=== PATIENT | female | born 1950 | race Caucasian/White ===

== ENCOUNTER 2016-06-22 08:32 | Emergency (ER) | payer BC, MEDICARE ==
[~2016-06-22] VITALS: Ht 162.6 cm; Wt 72.5 kg
[2016-06-22 08:44] VITALS: BP 208/88; PULSE 53; RESP 17; TEMP 98; O2SAT 100
[2016-06-22] MEDS ORDERED: ASPI1TAB69 PO (08:53)
[2016-06-22] MEDS ORDERED: AMBI10TA PO (08:53)
[2016-06-22] MEDS ORDERED: MULTTAB67 PO (08:53)
[2016-06-22] MEDS ORDERED: VENTAER INH (08:53)
[2016-06-22] MEDS ORDERED: ONDANSETRON ODT 4 MG TAB PO ONE (09:00)
[2016-06-22] MEDS ORDERED: MECLIZINE HCL 25 MG TAB PO ONE (09:00)
[2016-06-22] MEDS ORDERED: cloNIDine HCL 0.2 MG TAB PO ONE (09:00)
--- NOTE | 2016-06-22 09:09 | PD ---
HPI Chief Complaint: Dizziness Time Seen by Provider: 08:51 Travel History International Travel<30 days: No Contact w/Intl Traveler<30days: No Traveled to known affect area: No History of Present Illness HPI This patient is here vacationing from [place]. She called 911 because she woke up this morning feeling dizzy and lightheaded. There is a distinct room spinning sensation. Was worse when she turns her head. She doesn't have history of hypertension but her blood pressures 208 systolic on multiple readings. Did not have any type of headache. Her dizziness is still present but improved at this time. No alleviating factors. No syncope or chest pain. She's had a lot of anxiety and stress lately which she thinks may be affecting her blood pressure. Severity is moderate. Duration one day PFSH Past Medical History Arthritis: Yes Asthma: Yes Diminished Hearing: No Gastrointestinal Disorders: Yes Tetanus Vaccination: < 5 Years Influenza Vaccination: Yes ?: Not Past Surgical History Appendectomy: Yes Section: Yes Hysterectomy: Yes Oral Surgery: Yes Tympanostomy Tube: Yes Other Surgery: Yes (BARTHOLON CYSTS REMOVED) Social History Alcohol Use: Yes (~2 DRINKS A NIGHT) Tobacco Use: No Substance Use: Yes (POT SOCIAL) Allergies-Medications (Allergen,Severity, Reaction): Coded Allergies: Iodinated Contrast Media (Verified Allergy, Severe, Anaphylaxis, 06/22/16) Iodine (Verified Allergy, Severe, Anaphylaxis, 06/22/16) Reported Meds & Prescriptions Reported Meds & Active Scripts Active Reported Ventolin Hfa 18 GM Inh (Albuterol Sulfate) 90 Mcg/Act Aer 2 Puff INH Q4-6H PRN Multiple Vitamin 1 Tab 1 Tab PO DAILY Aspirin 81 Mg Tabdr 81 Mg PO DAILY Ambien (Zolpidem Tartrate) 10 Mg Tab 10 Mg PO HS PRN Review of Systems General / Constitutional: No: Fever Eyes: No: Visual changes HENT: Positive: Lightheadedness, No: Headaches Cardiovascular: No: Chest Pain or Discomfort Respiratory: No: Shortness of Breath Gastrointestinal: Positive: Nausea, No: Abdominal Pain Genitourinary: No: Dysuria Musculoskeletal: No: Pain Skin: No Rash Neurologic: Positive: Dizziness, No: Weakness Psychiatric: No: Depression Endocrine: No: Polydipsia Hematologic/Lymphatic: No: Easy Bruising Physical Exam Narrative GENERAL: Well-nourished, well-developed patient in no apparent distress. SKIN: Warm and dry. HEAD: Atraumatic. Normocephalic. EYES: Pupils equal and round. No scleral icterus. No injection or drainage. ENT: No nasal bleeding or discharge. Mucous membranes pink and moist. NECK: Trachea midline. No JVD. CARDIOVASCULAR: Regular rate and rhythm. No murmur appreciated. RESPIRATORY: No accessory muscle use. Clear to auscultation. Breath sounds equal bilaterally. GASTROINTESTINAL: Abdomen soft, non-tender, nondistended. Hepatic and splenic margins not palpable. MUSCULOSKELETAL: No obvious deformities. No clubbing. No cyanosis. No edema. NEUROLOGICAL: Awake and alert. No obvious cranial nerve deficits. Motor grossly within normal limits. Normal speech. PSYCHIATRIC: Appropriate mood and affect; insight and judgment normal. Data Data Last Documented VS Vital Signs Date Time Temp Pulse Resp B/P Pulse Ox O2 Delivery O2 Flow Rate FiO2 06/22/16 10:07 52 16 165/81 98 Room Air 06/22/16 08:44 98.0 Orders Clonidine (Catapres) (06/22/16 09:00) Meclizine (Antivert) (06/22/16 09:00) Ondansetron Odt (Zofran Odt) (06/22/16 09:00) Electrocardiogram (06/22/16 ) Plastic Welder / Telemetry MICHAEL.Q8H (06/22/16 08:56) Complete Blood Count With Diff (06/22/16 08:57) Basic Metabolic Panel (Bmp) (06/22/16 08:57) Labs Laboratory Tests Test 06/22/16 09:15 White Blood Count 5.2 TH/MM3 Red Blood Count 4.42 MIL/MM3 Hemoglobin 13.7 GM/DL Hematocrit 40.5 % Mean Corpuscular Volume 91.6 FL Mean Corpuscular Hemoglobin 31.0 PG Mean Corpuscular Hemoglobin 33.8 % Concent Red Cell Distribution Width 12.7 % Platelet Count 267 TH/MM3 Mean Platelet Volume 7.7 FL Neutrophils (%) (Auto) 75.7 % Lymphocytes (%) (Auto) 17.5 % Monocytes (%) (Auto) 4.9 % Eosinophils (%) (Auto) 1.2 % Basophils (%) (Auto) 0.7 % Neutrophils # (Auto) 3.9 TH/MM3 Lymphocytes # (Auto) 0.9 TH/MM3 Monocytes # (Auto) 0.3 TH/MM3 Eosinophils # (Auto) 0.1 TH/MM3 Basophils # (Auto) 0.0 TH/MM3 CBC Comment DIFF FINAL Differential Comment Sodium Level 140 MEQ/L Potassium Level 4.0 MEQ/L Chloride Level 104 MEQ/L Carbon Dioxide Level 27.0 MEQ/L Anion Gap 9 MEQ/L Blood Urea Nitrogen 18 MG/DL Creatinine 0.75 MG/DL Estimat Glomerular Filtration 77 ML/MIN Rate Random Glucose 141 MG/DL Calcium Level 8.5 MG/DL MDM Medical Decision Making Medical Screen Exam Complete: Yes Emergency Medical Condition: Yes Medical Record Reviewed: Yes Differential Diagnosis Hypertensive urgency, accelerated hypertension, positional vertigo Narrative Course I have reviewed the patient's electronic medical record. Patient has not been here before, she is visiting from out of town Patient is neurologically intact She has Accelerated hypertension and I gave her dose of clonidine and will reassess CBC is normal Metabolic profile is normal I reviewed her EKG which shows sinus bradycardia without ectopy Extended cardiac monitoring reveals sinus bradycardia in the 50s without ectopy I gave her dose of meclizine and Zofran Blood pressure is now 165/81 She feels improved Wrote her some Zofran to use as needed and consider trial of meclizine She will check and record her blood pressure daily and pulse The patient was advised to follow up with their physician and return if they worsen. Diagnosis Primary Impression: Positional vertigo Qualified Code: H81.10 - Positional vertigo, unspecified laterality Additional Impression: Accelerated hypertension Additional Instructions: The patient was advised to follow up with their physician and return if they worsen. Check and record blood pressure daily Trial of meclizine which is [id number] Med/Other Pt SpecificInfo: Prescription(s) given Scripts Ondansetron (Zofran)4 Mg Tab4 Mg PO Q6HR PRN (NAUSEA OR VOMITING) #15 TAB Ref 0 Prov:Ralph Gann MD 06/22/16 Disposition: 01 DISCHARGE HOME Condition: Stable Ralph Gann MD Jun 22, 2016 09:09
[2016-06-22 09:26] LABS: AUTOMATED NEUTROPHIL # 3.9 TH/MM3 (1.8-7.7); BASOPHIL % 0.7 % (0.0-2.0); EOSINOPHIL # 0.1 TH/MM3 (0-0.4); EOSINOPHIL % 1.2 % (0.0-4.0); HEMATOCRIT 40.5 % (35.0-46.0); HEMO FLAGS DIFF FINAL; LYMPH % 17.5 % (9.0-44.0); LYMPHOCYTE # 0.9 TH/MM3 (1.0-4.8); MEAN CELL VOLUME 91.6 FL (80.0-100.0); MEAN CORPUSCULAR HGB CONC 33.8 % (32.0-36.0); MONO % 4.9 % (0.0-8.0); NEUT % 75.7 % (16.0-70.0); PLATELET COUNT 267 TH/MM3 (150-450); RED BLOOD COUNT 4.42 MIL/MM3 (4.00-5.30); RED CELL DISTRIBUTION WIDTH 12.7 % (11.6-17.2); WHITE BLOOD COUNT 5.2 TH/MM3 (4.0-11.0)
[2016-06-22 09:40] VITALS: BP 175/85; PULSE 49; RESP 17; O2SAT 100
[2016-06-22 10:07] VITALS: BP 165/81; PULSE 52; RESP 16; O2SAT 98
[2016-06-22] MEDS ORDERED: ZOFR4TAB PO (10:12)
--- NOTE | 2016-06-23 18:17 | EKG ---
Date Performed: 06/22/2016 Time Performed: 09:07:24 PTAGE: 66 years EKG: Sinus bradycardia Prolonged QT interval Lateral ST-T changes are nonspecific Borderline ECG NO PREVIOUS TRACING DOCTOR: Pawel Christensen Interpretating Date/Time 06/23/2016 18:13:21
== END 2016-06-22 10:30 | disposition home or self-care (01) ==
LOC: PHED 08:32
DX: H81.10 Benign paroxysmal vertigo, unspecified ear (principal); I10 Essential (primary) hypertension; R00.1 Bradycardia, unspecified; R94.31 Abnormal electrocardiogram [ECG] [EKG]; Z87.39 Personal history of other diseases of the musculoskeletal system and connective tissue; Z87.09 Personal history of other diseases of the respiratory system; Z87.19 Personal history of other diseases of the digestive system
CPT/HCPCS: 80048; 85025; 93005